=== PATIENT | male | born 1995 | race Hispanic/Latino ===

== ENCOUNTER → 2020-07-09 | Outpatient (CLI) | payer BC | LOC: MRI 09:49 | PROVIDERS: ATTEND Specialist | DX: M23.612 Other spontaneous disruption of anterior cruciate ligament of left knee (principal) ==

== ENCOUNTER → 2020-09-04 | Day surgery (SDC) | payer BC ==
[~2020-09-04] MED LIST: CEFAZOLIN SOD 1 GM/NS 50ML 50 ML IV ONE; DEXAMETHASONE SOD PHOS INJ 4 MG/ML VIAL ONE; FENTANYL CITRATE/PF 100MCG/2 ML INJ ONE; KETOROLAC TROMETHAMINE 30 MG/ML VIAL ONE; LIDOCAINE 2%/ EPINEPHRINE 20ML MDV ONE; LIDOCAINE HCL 2% LOCAL INJ 5 ML SDV VIAL INJ ONE; MELATONIN3 M1 PO; MEPERIDINE HCL INJ 25 MG/ML VIAL ONE; MIDAZOLAM HCL 2 MG/2 ML VIAL ONE; ONDANSETRON HCL INJ 2MG/ML 2ML 2 MG/ML VIAL ONE; PROPOFOL IV EMULSION 10 MG/ML 20 ML VIAL ONE; ROPIVACAINE 0.5% 5 MG/ML 30 ML SDV ONE; SEVOFLURANE INHAL SOLN 250 ML PEN BTL ONE
[2020-09-04 11:32] VITALS: BP 123/79
== END | disposition home or self-care (01) ==
LOC: OR 08:33
PROVIDERS: ATTEND Specialist
DX: S83.512A Sprain of anterior cruciate ligament of left knee, initial encounter (principal); S83.242A Other tear of medial meniscus, current injury, left knee, initial encounter; M23.262 Derangement of other lateral meniscus due to old tear or injury, left knee; M94.262 Chondromalacia, left knee; X58.XXXA Exposure to other specified factors, initial encounter; Y93.66 Activity, soccer; Y99.8 Other external cause status; Z01.812 Encounter for preprocedural laboratory examination; Z20.822 Contact with and (suspected) exposure to COVID-19
CPT/HCPCS: 29879; 29882; 29888; C1713 ×3; J0690; J1100; J1885; J2001 ×2; J2175; J2250; J2405; J2704; J2795; J3010; U0002